=== PATIENT | female | born 1965 | race Caucasian/White ===

== ENCOUNTER → 2018-02-25 | Outpatient (CLI) | payer BC | LOC: MC.RAD 12-29 09:00 | DX: Z12.31 Encounter for screening mammogram for malignant neoplasm of breast (principal) ==

== ENCOUNTER → 2020-01-11 | Outpatient (CLI) | payer BC | LOC: MC.RAD 07:15 | DX: N64.89 Other specified disorders of breast (principal) | CPT/HCPCS: G0279 ==

== ENCOUNTER → 2020-07-29 | Outpatient (CLI) | payer BC | LOC: MC.RAD 13:49 | DX: N64.89 Other specified disorders of breast (principal) ==

== ENCOUNTER → 2021-01-27 | Outpatient (CLI) | payer BC | LOC: MC.RAD 07:55 | DX: N64.89 Other specified disorders of breast (principal) ==

== ENCOUNTER → 2022-03-02 | Outpatient (CLI) | payer BC | LOC: MC.RAD 10:22 | DX: Z12.31 Encounter for screening mammogram for malignant neoplasm of breast (principal) ==

== ENCOUNTER → 2024-04-07 | Outpatient (CLI) | payer BC | LOC: MC.RAD 08:57 | DX: Z12.31 Encounter for screening mammogram for malignant neoplasm of breast (principal) ==